=== PATIENT | female | born 1995 | race Caucasian/White ===

== ENCOUNTER 2016-07-21 19:40 | Emergency (ER) | payer BC ==
[2016-07-21 20:26] VITALS: BP 123/82
--- NOTE | 2016-07-21 21:27 | UC ---
Respiratory Complaint HPI - HPI Summary HPI Summary: cough x 1 week , nasal congestion no fever, no chills - History of Current Complaint Chief Complaint: UCGeneralIllness Stated Complaint: COUGH Time Seen by Provider: 07/21/16 20:42 Hx Obtained From: Patient Hx Last Menstrual Period: 07/06/16 Onset/Duration: Gradual Onset, Lasting Days - 5, Still Present Timing: Constant Severity Initially: Moderate Severity Currently: Moderate Character: Cough: Nonproductive Aggravating Factors: Exertion, Deep Breaths Alleviating Factors: Nothing Associated Signs And Symptoms: Positive: URI, Nasal Congestion. Negative: Dyspnea, Fever, Chills, Pleuritic Chest Pain, Wheezing - Allergies/Home Medications Allergies/Adverse Reactions: Allergies Allergy/AdvReac Type Severity Reaction Status Date / Time No Known Allergies Allergy Verified 07/21/16 20:25 Home Medications: Home Medications Azithromycin TAB* [Zithromax TAB (Z-JOESPH) 250 mg #6 tabs] 500 mg PO DAILY [History Confirmed 07/21/16] PMH/Surg Hx/FS Hx/Imm Hx Endocrine History Of: Reports: Thyroid Disease - Surgical History Surgical History: None - Family History Known Family History: Negative: Diabetes - Social History Alcohol Use: Occasionally Substance Use Type: None Smoking Status (MU): Never Smoked Tobacco - Immunization History Most Recent Influenza Vaccination: none Review of Systems Constitutional: Negative Skin: Negative Eyes: Negative ENT: Nasal Discharge Respiratory: Cough Cardiovascular: Negative Psychological: Negative All Other Systems Reviewed And Are Negative: Yes Physical Exam Triage Information Reviewed: Yes Appearance: Well-Appearing, No Pain Distress, Well-Nourished Vital Signs: Initial Vital Signs Temp 98.8 F 07/21/16 20:21 Pulse 73 07/21/16 20:21 Resp 16 07/21/16 20:21 BP 123/82 07/21/16 20:21 Pulse Ox 99 07/21/16 20:21 Eye Exam: Normal ENT: Positive: Normal ENT inspection, Hearing grossly normal, Pharyngeal erythema, Nasal congestion, Nasal drainage, TMs normal Neck: Positive: Supple, Nontender, No Lymphadenopathy Respiratory: Positive: Chest non-tender, Lungs clear, Normal breath sounds Cardiovascular Exam: Normal Cardiovascular: Positive: RRR, No Murmur, Pulses Normal UC Diagnostic Evaluation - Laboratory O2 Sat by Pulse Oximetry: 99 Respiratory Course/Dx - Differential Dx/Diagnosis Provider Diagnoses: uri Discharge - Discharge Plan Condition: Stable Disposition: HOME Patient Education Materials: Upper Respiratory Infection (ED) Additional Instructions: follow up as needed
== END 2016-07-21 21:30 | disposition home or self-care (01) ==
LOC: UCCORT 19:40
DX: J06.9 Acute upper respiratory infection, unspecified (principal)
CPT/HCPCS: 99201; G0463